=== PATIENT | female | born 1950 | race Caucasian/White ===

== ENCOUNTER → 2017-01-23 | Outpatient (CLI) | payer OTHER, BC ==
[~2017-01-23] VITALS: Ht 154.9 cm; Wt 72.0 kg
[~2017-01-23] MED LIST: CALCIUM 500 +1 EAC2 PO; INDERAL80 MG PO; VIACTIV SOFT C1 EACH PO; ZOLOFT50 MG PO
[2017-01-23 08:56] VITALS: BP 127/91
[2017-01-23 10:09] VITALS: BP 127/85
== END | disposition home or self-care (01) ==
LOC: IVINF 01-21 15:00
DX: M81.0 Age-related osteoporosis without current pathological fracture (principal)
CPT/HCPCS: 96365; J3489